=== PATIENT | male | born 1985 | race African-American/Black ===

== ENCOUNTER 2017-02-14 08:12 | Emergency (ER) | payer OTHER ==
[~2017-02-14] VITALS: Ht 190.5 cm; Wt 90.5 kg
[2017-02-14 08:16] VITALS: TEMP 36.7; Ht 190.5 cm; Wt 90.5 kg
[2017-02-14] MEDS ORDERED: SODIUM CHLORIDE 0.9% 1000ML 1,000 ML IV STA (08:47)
[2017-02-14] MEDS ORDERED: OPTIRAY 320 IV PRN (09:00)
[2017-02-14] MEDS ORDERED: ALBU18002 PO (09:03)
[2017-02-14 09:05] LABS: BASO % 0.4 %; BASO ABS # 0.04 K/uL (0-0.2); COMPLETE YES; EOS % 2.7 %; HEMATOCRIT 45.4 % (42-52); IG% 0.2 %; LYMPH % 44.9 %; LYMPH ABS # 4.11 K/uL (1.2-3.4); MEAN CELL VOLUME 84.4 fL (80-100); MEAN CORPUSCULAR HEMOGLOBIN 27.1 pg (25-34); MEAN CORPUSCULAR HGB CONC 32.2 g/dl (32-36); MEAN PLATELET VOLUME 10.5 fL (7.4-10.4); NEUT % 32.8 %; PLATELET COUNT 311 K/uL (130-400); RED BLOOD COUNT 5.38 M/uL (4.7-6.1); WHITE BLOOD COUNT 9.15 K/uL (4.8-10.8)
[2017-02-14 09:13] LABS: ALT/SGPT 36 U/L (12-78); BLOOD UREA NITROGEN 18 mg/dl (7-18); BUN/CREATININE RATIO 13.6 (10-20); C-REACTIVE PROTEIN < 0.29 mg/dl (0-0.29); CARBON DIOXIDE 29 mmol/L (21-32); CHLORIDE 106 mmol/L (98-107); GLUCOSE 85 mg/dl (70-99); POTASSIUM 3.2 mmol/L (3.5-5.1); SODIUM 141 mmol/L (136-145)
[2017-02-14 09:15] LABS: CALCIUM 8.9 mg/dl (8.5-10.1)
[2017-02-14 09:16] LABS: ALKALINE PHOSPHATASE 77 U/L (45-117); AST/SGOT 23 U/L (15-37)
--- NOTE | 2017-02-14 11:50 | DIAGNOSTIC IMAGING REPORT ---
CT ABD/PELVIS IV AND ORAL CONT CLINICAL HISTORY: Lower abdominal pain. History of colitis. COMPARISON STUDY: 01/26/2016 TECHNIQUE: Following the IV administration of 92 mL of Optiray-320, CT scan of the abdomen and pelvis was performed from the lung bases to the proximal femurs. Images are reviewed in the axial, sagittal, and coronal planes. IV contrast was administered without complication. CT DOSE: 352.44 mGy.cm FINDINGS: Lower chest: The heart is normal in size and configuration, without pericardial effusion. The lung bases and pleural spaces are clear. Liver: The contrast-enhanced liver is normal in size, contour, and attenuation. There is no intrahepatic biliary ductal dilatation. The hepatic veins and portal veins are patent. Gallbladder: Unremarkable. Spleen: Normal in size and attenuation. Pancreas: Unremarkable. Adrenal glands: Unremarkable. Kidneys: There is symmetric renal cortical enhancement. The kidneys are normal in size without hydronephrosis. Bowel: There are no transition zones indicate bowel obstruction. The appendix appears normal. No abnormalities the terminal ileum are visualized. There is mild left-sided colonic wall thickening, consistent with colitis (infectious versus inflammatory bowel disease). There are no fluid collections to indicate a peridiverticular abscess. Peritoneum: There is no intraperitoneal free air or abdominal ascites. Vasculature: The abdominal aorta is normal in course and caliber. Adenopathy: None. Pelvic viscera: The bladder, and pelvic viscera are unremarkable. Skeletal structures: No destructive osseous lesions are seen. IMPRESSION: 1. No evidence of bowel obstruction. No evidence of free air 2. Normal appendix 3. Left-sided colonic wall thickening, consistent with a colitis (inflammatory bowel disease versus infectious colitis) Electronically signed by: Prince Nuñez M.D. 02/14/2017 11:48 AM Dictated Date/Time: 02/14/2017 11:43 AM
[2017-02-14] MEDS ORDERED: METHYLPREDNISOLONE 125 MG VIAL IV STA (12:15)
--- NOTE | 2017-02-14 12:15 | EMERGENCY ROOM VISIT NOTE ---
History First contact with patient: 08:30 Chief Complaint: GI ASSESSMENT Stated Complaint: FLARE-UP W/COLITIS Nursing Triage Summary: Triage note: pt reports "i have a flare up of colitis." pt reports pain started last week and increased 2 days ago. pt reports generalized abd pain and nausea, diarrhea, blood in stool. History of Present Illness The patient is a 31 year old male who presents to the Emergency Room with complaints of abdominal cramping, diarrhea, and intermittent blood in stools for the past 1.5 weeks. Patient states history of ulcerative colitis for 10 years, states he was previously treated with Humira, but lost his medical insurance and could no longer afford to be on the medication. He states his current symptoms are similar to previous flares of his colitis. His most recent flare was one year ago and required hospitalization for the patient. He does note that he has a friend with colitis and he has taken some of her prednisone, but he is unsure of the dose or how many times he has taken it. He denies fevers, chills, fatigue, chest pain, shortness of breath, syncope, nausea /vomiting, urinary symptoms. He denies any recent antibiotics. Review of Systems GENERAL: Denies fevers, chills, malaise, fatigue, unintentional weight changes. HEENT: Denies dizziness, visual problems, hearing loss, tinnitus. Denies difficulty swallowing or oral lesions. PULMONARY: Denies cough, shortness of breath, sputum production or hemoptysis. CARDIOVASCULAR: Denies chest pain, palpitations, dyspnea on exertion, orthopnea or peripheral edema. GASTROINTESTINAL: + Abdominal pain, diarrhea, blood in stool. Denies constipation, nausea, vomiting. GENITOURINARY: Denies dysuria, frequency, urgency or nocturia. NEUROLOGIC: Denies history of epilepsy, CVA, TIA or chronic headaches. MUSCULOSKELETAL: Denies history of joint tenderness/swelling. SKIN: Denies rashes or lesions. PSYCHIATRIC: Denies history of depression or mental illness. ENDOCRINE: Denies history of diabetes, thyroid disorders, abnormal hair growth or sexual dysfunction. Past Medical/Surgical History Medical Problems: (1) Allergic rhinitis (2) Asthma (3) Colitis Family History Cancer Heart disease Hypertension Social History Smoking Status: Never Smoker Alcohol Use: occasionally Drug Use: marijuana Marital Status: in relationship Housing Status: lives with family Occupation Status: employed Current/Historical Medications Scheduled Prednisone (Prednisone Tab), 0 PO DAILY Scheduled PRN Albuterol Sulfate (Proair Respiclick), 2 PUFF PO UD PRN for Shortness of Breath Allergies Coded Allergies: No Known Allergies (Unverified , 02/14/17) Physical Exam Vital Signs Date Time Temp Pulse Resp B/P Pulse Ox O2 Delivery O2 Flow Rate FiO2 02/14/17 13:04 62 18 129/82 100 02/14/17 12:23 119/76 02/14/17 11:29 78 117/65 02/14/17 09:52 84 18 119/69 02/14/17 08:16 36.7 71 18 130/84 98 Room Air Physical Exam CONSTITUTIONAL: No acute distress. Well appearing and well nourished. Alert and oriented X 4 with normal affect. HEENT: Normocephalic, atraumatic. Pupils equal, round and reactive to light, EOMI. TMs normal. Pharynx normal. Dry mucous membranes. NECK: Supple, full active range of motion without discomfort. RESPIRATORY: Clear to auscultation bilaterally with no wheezing, crackles, rhonchi or stridor. Equal expansion bilaterally. CARDIOVASCULAR: Regular rate and rhythm with no murmurs, rubs or gallops. Normal peripheral perfusion. No edema. GASTROINTESTINAL: Tender to palpation in the left upper and lower quadrants, no rebound, no guarding. Soft, nondistended. Hyperactive bowel sounds present in all quadrants. MUSCULOSKELETAL: Full range of motion of all joints without discomfort. INTEGUMENTARY: No rash or other significant dermatologic conditions noted. NEUROLOGIC: Cranial nerves II-XII grossly intact. No focal neurologic deficits noted. Medical Decision & Procedures ER Provider Diagnostic Interpretation: CT ABD/PELVIS IV AND ORAL CONT CLINICAL HISTORY: Lower abdominal pain. History of colitis. COMPARISON STUDY: 01/26/2016 TECHNIQUE: Following the IV administration of 92 mL of Optiray-320, CT scan of the abdomen and pelvis was performed from the lung bases to the proximal femurs. Images are reviewed in the axial, sagittal, and coronal planes. IV contrast was administered without complication. CT DOSE: 352.44 mGy.cm FINDINGS: Lower chest: The heart is normal in size and configuration, without pericardial effusion. The lung bases and pleural spaces are clear. Liver: The contrast-enhanced liver is normal in size, contour, and attenuation. There is no intrahepatic biliary ductal dilatation. The hepatic veins and portal veins are patent. Gallbladder: Unremarkable. Spleen: Normal in size and attenuation. Pancreas: Unremarkable. Adrenal glands: Unremarkable. Kidneys: There is symmetric renal cortical enhancement. The kidneys are normal in size without hydronephrosis. Bowel: There are no transition zones indicate bowel obstruction. The appendix appears normal. No abnormalities the terminal ileum are visualized. There is mild left-sided colonic wall thickening, consistent with colitis (infectious versus inflammatory bowel disease). There are no fluid collections to indicate a peridiverticular abscess. Peritoneum: There is no intraperitoneal free air or abdominal ascites. Vasculature: The abdominal aorta is normal in course and caliber. Adenopathy: None. Pelvic viscera: The bladder, and pelvic viscera are unremarkable. Skeletal structures: No destructive osseous lesions are seen. IMPRESSION: 1. No evidence of bowel obstruction. No evidence of free air 2. Normal appendix 3. Left-sided colonic wall thickening, consistent with a colitis (inflammatory bowel disease versus infectious colitis) Laboratory Results 02/14/17 08:25 Red Blood Count 5.38, Mean Corpuscular Volume 84.4, Mean Corpuscular Hemoglobin 27.1, Mean Corpuscular Hemoglobin Concent 32.2, Mean Platelet Volume 10.5, Neutrophils (%) (Auto) 32.8, Lymphocytes (%) (Auto) 44.9, Monocytes (%) (Auto) 19.0, Eosinophils (%) (Auto) 2.7, Basophils (%) (Auto) 0.4, Neutrophils # (Auto ) 2.99, Lymphocytes # (Auto) 4.11, Monocytes # (Auto) 1.74, Eosinophils # (Auto ) 0.25, Basophils # (Auto) 0.04 02/14/17 08:25 Test 02/14/17 08:25 White Blood Count 9.15 K/uL (4.8-10.8) Red Blood Count 5.38 M/uL (4.7-6.1) Hemoglobin 14.6 g/dL (14.0-18.0) Hematocrit 45.4 % (42-52) Mean Corpuscular Volume 84.4 fL (80-100) Mean Corpuscular Hemoglobin 27.1 pg (25-34) Mean Corpuscular Hemoglobin Concent 32.2 g/dl (32-36) Platelet Count 311 K/uL (130-400) Mean Platelet Volume 10.5 fL (7.4-10.4) Neutrophils (%) (Auto) 32.8 % Lymphocytes (%) (Auto) 44.9 % Monocytes (%) (Auto) 19.0 % Eosinophils (%) (Auto) 2.7 % Basophils (%) (Auto) 0.4 % Neutrophils # (Auto) 2.99 K/uL (1.4-6.5) Lymphocytes # (Auto) 4.11 K/uL (1.2-3.4) Monocytes # (Auto) 1.74 K/uL (0.11-0.59) Eosinophils # (Auto) 0.25 K/uL (0-0.5) Basophils # (Auto) 0.04 K/uL (0-0.2) RDW Standard Deviation 40.2 fL (36.4-46.3) RDW Coefficient of Variation 13.2 % (11.5-14.5) Immature Granulocyte % (Auto) 0.2 % Immature Granulocyte # (Auto) 0.02 K/uL (0.00-0.02) Erythrocyte Sedimentation Rate 12 mm/hr (0-14) Anion Gap 6.0 mmol/L (3-11) Est Creatinine Clear Calc Drug Dose 98.4 ml/min Estimated GFR () 84.3 Estimated GFR (Non- 72.7 BUN/Creatinine Ratio 13.6 (10-20) Calcium Level 8.9 mg/dl (8.5-10.1) Total Bilirubin 0.4 mg/dl (0.2-1) Direct Bilirubin 0.1 mg/dl (0-0.2) Aspartate Amino Transf (AST/SGOT) 23 U/L (15-37) Alanine Aminotransferase (ALT/SGPT) 36 U/L (12-78) Alkaline Phosphatase 77 U/L (45-117) C-Reactive Protein < 0.29 mg/dl (0-0.29) Total Protein 7.9 gm/dl (6.4-8.2) Albumin 3.9 gm/dl (3.4-5.0) Lipase 137 U/L (73-393) Medications Administered Medications (Trade) Dose Ordered Sig/Kari Route Start Time Stop Time Status Last Admin Dose Admin Sodium Chloride (Nss 1000ml) 1,000 ml @ 999 mls/hr Q1H1M STAT IV 02/14/17 08:47 02/14/17 09:47 DC 02/14/17 09:11 999 MLS/HR Methylprednisolone Sodium Succinate (Solu-Medrol IV) 125 mg NOW STAT IV 02/14/17 12:15 02/14/17 12:17 DC 02/14/17 12:26 125 MG Medical Decision CC: Patient presenting with complaint of abdominal cramping, diarrhea, blood in stool Interpretation of Labs: No leukocytosis, no anemia, no significant electrolyte abnormalities, normal renal function, normal inflammatory markers. Differential Diagnosis: Includes, but not limited to colitis ulcerative versus infectious, gastroenteritis, diverticulitis, intra-abdominal infection, dehydration Summary: Patient was evaluated at bedside, history of physical exam performed. He is alert and pleasant, in no distress. He has moderate tenderness of the left mid and lower quadrants to palpation. He appears mildly dehydrated. He was offered something for pain, which he declines. Orders were placed at bedside for labs, IV fluids, CT abdomen/pelvis to evaluate for flare of ulcerative colitis versus other intra-abdominal pathology. Patient discussed with Dr. Copeland, who agrees with my assessment and plan. Labs reviewed, no significant abnormalities as above. Less likely is significant flare. CT reviewed, consistent with mild ulcerative colitis changes, correlating with patient's area of tenderness. Patient treated with IV Solu-Medrol, Rx for prednisone also provided, and patient was strictly instructed to follow closely with his GI specialist for steroid taper and further management. Patient reassessed multiple times throughout ED stay, he is clinically improved and remained stable, continuous to decline any pain medication. Patient was discharged home in stable condition, ambulatory. He was given strict return precautions, he verbalized understanding. Impression Primary Impression: Ulcerative colitis, acute Departure Information Dispostion Home / Self-Care Condition GOOD Prescriptions Prednisone (Prednisone Tab) 20 Mg Tab 0 PO DAILY for 14 Days, #28 TAB 2 TABS DAILY FOR 2 DAYS, THEN 1 TAB DAILY FOR 2 DAYS, THEN 1/2 TAB DAILY FOR 2 DAYS. Prov: Vashti Burton CRNP 02/14/17 Referrals Isis Ocampo C.R.N.P. (PCP) Patient Instructions ED Colitis Ulcerative, My [facility] Additional Instructions Call your semiconductor packages tester today to make a follow-up appointment within the next 1 week. Take the prednisone daily as prescribed. You have been given a prescription for 2 weeks. This will need to be tapered down by your semiconductor packages tester or PCP. It is vital that you follow-up. Drink plenty of fluids to stay well hydrated. Tylenol as needed for pain please return to the ER for worsening symptoms, including severe abdominal pain, vomiting up blood, large amounts of bloody diarrhea, fever/chills/feeling ill, or any other concerns. Problem Qualifiers Primary Impression: Ulcerative colitis, acute Digestive disease complication type: without complication Qualified Codes: K51.90 - Ulcerative colitis, unspecified, without complications
[2017-02-14] MEDS ORDERED: PRED20TA2 PO (12:36)
[2017-02-14 13:04] VITALS: BP 129/82; PULSE 62; O2SAT 100
== END 2017-02-14 13:07 | disposition home or self-care (01) ==
LOC: C.EDB 08:13
DX: K51.90 Ulcerative colitis, unspecified, without complications (principal); J45.909 Unspecified asthma, uncomplicated; Z86.19 Personal history of other infectious and parasitic diseases; Z80.9 Family history of malignant neoplasm, unspecified; Z82.49 Family history of ischemic heart disease and other diseases of the circulatory system

== ENCOUNTER 2017-02-26 11:10 | Emergency (ER) | payer OTHER ==
[~2017-02-26] VITALS: Ht 190.5 cm; Wt 82.9 kg
[~2017-02-26 11:10] MED LIST: ALBU18002 PO; PRED20TA2 PO
[2017-02-26 11:13] VITALS: TEMP 36.7; Ht 190.5 cm; Wt 82.9 kg
[2017-02-26] MEDS ORDERED: SODIUM CHLORIDE 0.9% 1000ML 1,000 ML IV ONE (11:30)
--- NOTE | 2017-02-26 11:36 | EMERGENCY ROOM VISIT NOTE ---
History Report prepared by [place]: Priscila Dupont Under the Supervision of: Dr. Sánchez Becerra M.D. First contact with patient: 11:24 Chief Complaint: GI ASSESSMENT Stated Complaint: FLARE-UP FROM COLITIS History of Present Illness The patient is a 31 year old male who presents to the Emergency Room with complaints of persistent abdominal pain for the past several days. He currently rates his discomfort as a 7/10 in severity. The patient reports a history of colitis and states that he was evaluated in the emergency department last week for his symptoms. He states that he was discharged with Prednisone and states that he took his last tablet today. The patient states that his symptoms have not subsided. Today he associates nausea, vomiting and diarrhea with his symptoms today. The patient states that he has been experiencing hematochezia. He additionally reports a 22 lbs weight loss since the beginning of his flare up. The patient states that his nausea is worse than it had ever been. He states that he follows with Gastroenterology. The patient states that he previously took Humira, noting that he did well with the medication. He states that this he will be starting Humira again. The patient reports increase in fatigue. He additionally notes numbness in his lower legs with lying flat. Source of History: patient Onset: past several days Position: abdomen Symptom Intensity: 7/10 Timing: other (persistent) Associated Symptoms: + nausea, + vomiting, + hematochezia, + diarrhea, + fatigue, + numbness (lower legs) Review of Systems All systems have been listed, reviewed, and are negative other than those previously mentioned. Please see Additional Medical History Sheet. Past Medical & Surgical Medical Problems: (1) Allergic rhinitis (2) Asthma (3) Colitis Family History Cancer Diabetes mellitus Heart disease Hypertension Social History Smoking Status: Never Smoker Smokeless Tobacco Use: No Alcohol Use: occasionally Drug Use: none Marital Status: in relationship Housing Status: lives with family Occupation Status: employed Current/Historical Medications Scheduled Prednisone (Prednisone Tab), 0 PO DAILY Scheduled PRN Albuterol Sulfate (Proair Respiclick), 2 PUFF PO UD PRN for Shortness of Breath Promethazine Hcl (Phenergan), 25 MG PO Q6H PRN for Nausea Allergies Coded Allergies: No Known Allergies (Unverified , 02/26/17) Physical Exam Vital Signs Date Time Temp Pulse Resp B/P (MAP) Pulse Ox O2 Delivery O2 Flow Rate FiO2 02/26/17 14:16 90 18 141/91 99 02/26/17 14:10 79 16 99 02/26/17 14:02 141/91 02/26/17 13:54 106 18 121/84 100 Room Air 02/26/17 13:40 79 19 97 02/26/17 13:32 121/84 02/26/17 13:10 78 17 96 02/26/17 13:02 122/81 02/26/17 12:40 84 20 97 02/26/17 12:32 123/81 02/26/17 12:10 83 16 100 02/26/17 12:06 87 02/26/17 12:02 124/83 02/26/17 11:44 120/93 02/26/17 11:13 36.7 110 16 124/83 98 Room Air Physical Exam GENERAL: Patient awake, alert, oriented x 3. Patient follows commands. Patient does not appear toxic. Patient appears mildly dehydrated, but well nourished. SKIN: No erythema, pallor, cyanosis or rash HEENT: Normal head, pupils equal, reactive to light and accommodation. Oral cavity and posterior pharynx appear normal. Neck: Without adenopathy, no neck vein distention. LUNGS: Clear to auscultation. No wheezes, no rales, no rhonchi. HEART: No murmurs. No gallops. No rubs ABDOMEN: Vague mid abdominal pain with small periumbilical hernia. EXTREMITIES: No signs of trauma. No pedal or pretibial edema. No calf or thigh tenderness. NEUROLOGIC: Cranial nerves II-XII within normal limits. No gross motor sensory function deficits. Medical Decision & Procedures Laboratory Results 02/26/17 11:25 Red Blood Count 5.85, Mean Corpuscular Volume 83.8, Mean Corpuscular Hemoglobin 28.2, Mean Corpuscular Hemoglobin Concent 33.7, Mean Platelet Volume 10.0, Neutrophils (%) (Auto) 74.9, Lymphocytes (%) (Auto) 10.6, Monocytes (%) (Auto) 11.9, Eosinophils (%) (Auto) 1.9, Basophils (%) (Auto) 0.4, Neutrophils # (Auto ) 12.61, Lymphocytes # (Auto) 1.79, Monocytes # (Auto) 2.01, Eosinophils # (Auto ) 0.32, Basophils # (Auto) 0.07 02/26/17 11:25 Test 02/26/17 11:25 White Blood Count 16.85 K/uL (4.8-10.8) Red Blood Count 5.85 M/uL (4.7-6.1) Hemoglobin 16.5 g/dL (14.0-18.0) Hematocrit 49.0 % (42-52) Mean Corpuscular Volume 83.8 fL (80-100) Mean Corpuscular Hemoglobin 28.2 pg (25-34) Mean Corpuscular Hemoglobin Concent 33.7 g/dl (32-36) Platelet Count 410 K/uL (130-400) Mean Platelet Volume 10.0 fL (7.4-10.4) Neutrophils (%) (Auto) 74.9 % Lymphocytes (%) (Auto) 10.6 % Monocytes (%) (Auto) 11.9 % Eosinophils (%) (Auto) 1.9 % Basophils (%) (Auto) 0.4 % Neutrophils # (Auto) 12.61 K/uL (1.4-6.5) Lymphocytes # (Auto) 1.79 K/uL (1.2-3.4) Monocytes # (Auto) 2.01 K/uL (0.11-0.59) Eosinophils # (Auto) 0.32 K/uL (0-0.5) Basophils # (Auto) 0.07 K/uL (0-0.2) RDW Standard Deviation 39.6 fL (36.4-46.3) RDW Coefficient of Variation 13.1 % (11.5-14.5) Immature Granulocyte % (Auto) 0.3 % Immature Granulocyte # (Auto) 0.05 K/uL (0.00-0.02) Anion Gap 9.0 mmol/L (3-11) Est Creatinine Clear Calc Drug Dose 73.8 ml/min Estimated GFR () 60.9 Estimated GFR (Non- 52.6 BUN/Creatinine Ratio 4.7 (10-20) Calcium Level 9.2 mg/dl (8.5-10.1) Total Bilirubin 0.7 mg/dl (0.2-1) Aspartate Amino Transf (AST/SGOT) 9 U/L (15-37) Alanine Aminotransferase (ALT/SGPT) 21 U/L (12-78) Alkaline Phosphatase 102 U/L (45-117) Total Protein 8.4 gm/dl (6.4-8.2) Albumin 3.7 gm/dl (3.4-5.0) Globulin 4.7 gm/dl (2.5-4.0) Albumin/Globulin Ratio 0.8 (0.9-2) Lipase 164 U/L (73-393) Date/Time Source Procedure Growth Status 02/26/17 11:55 Stool C.difficile Toxin B Gene (PCR) - Final No C. difficile toxin B gene detected Complete Laboratory results as stated above per my review. Medications Administered Medications (Trade) Dose Ordered Sig/Kari Route Start Time Stop Time Status Last Admin Dose Admin Ondansetron HCl (Zofran Inj) 4 mg Q1HWA PRN IV 02/26/17 11:30 02/26/17 14:48 DC 02/26/17 13:27 4 MG Sodium Chloride 1,000 ml @ 1,000 mls/hr Q1H ONCE IV 02/26/17 11:30 02/26/17 12:29 DC 02/26/17 11:48 1,000 MLS/HR Oxycodone/ Acetaminophen (Percocet 5-325mg Tab) 1 tab NOW ONCE PO 02/26/17 13:30 02/26/17 13:31 DC 02/26/17 13:53 1 TAB ED Course 1124: Past medical records reviewed. The patient was evaluated in room B9. A complete history and physical examination was performed. 1130: Ordered Sodium Chloride 1000 ml @ 1000 mls/hr IV, Zofran Inj 4 mg IV. 1330: Ordered Oxycodone/Acetaminophen 1 tab PO. 1354: I reevaluated the patient and he is feeling better. I discussed the exam findings with him and I discussed the treatment plan. He verbalized complete understanding and agreement. He is ready to go home. Medical Decision Nurses notes reviewed. Medical history sheet reviewed. Differential diagnosis includes but is not limited to: ulcerative colitis, dehydration, metabolic disorder, c-diff, other bacterial stool pathogen. Multiple labs and stool specimens were obtained. C. difficile was negative. White count is elevated but patient is on prednisone. Patient was given IV fluids and Zofran and felt significantly better. Patient was able to drink fluids prior to discharge. The patient is scheduled to start Humira this week. Stool culture is pending. Medication Reconciliation: I attest that I have personally reviewed the patient' s current medication list. Blood pressure Screening: Patient was found to have normal blood pressure on screening and does not require follow up. Impression Primary Impression: Exacerbation of ulcerative colitis Additional Impressions: Hypokalemia Dehydration Scribe Attestation The scribe's documentation has been prepared under my direction and personally reviewed by me in its entirety. I confirm that the note above accurately reflects all work, treatment, procedures, and medical decision making performed by me. Departure Information Dispostion Home / Self-Care Prescriptions Promethazine Hcl (Phenergan) 25 Mg Tab 25 MG PO Q6H Y for Nausea, #10 TAB Prov: Sánchez Becerra M.D. 02/26/17 Referrals No Doctor, Assigned (PCP) Forms HOME CARE DOCUMENTATION FORM, IMPORTANT VISIT INFORMATION Patient Instructions Colitis Ulcerative, Hypokalemia Dc, My [facility] Additional Instructions One Phenergan every 6 hours as needed for nausea. Drink at least 3-or 4 quarts of liquid over the next 24 hours. Increase potassium in her diet. Follow-up with gastroenterology this week. Problem Qualifiers
[2017-02-26] MEDS: ONDANSETRON INJ 2 MG/ML 2 ML VIAL IV PRN ×2 (11:49→13:27)
[2017-02-26 11:50] LABS: BASO % 0.4 %; BASO ABS # 0.07 K/uL (0-0.2); COMPLETE YES; EOS % 1.9 %; IG% 0.3 %; LYMPH % 10.6 %; LYMPH ABS # 1.79 K/uL (1.2-3.4); MEAN CELL VOLUME 83.8 fL (80-100); MEAN CORPUSCULAR HEMOGLOBIN 28.2 pg (25-34); MEAN CORPUSCULAR HGB CONC 33.7 g/dl (32-36); MONO % 11.9 %; NEUT % 74.9 %; PLATELET COUNT 410 K/uL (130-400); RED BLOOD COUNT 5.85 M/uL (4.7-6.1); WHITE BLOOD COUNT 16.85 K/uL (4.8-10.8)
[2017-02-26 11:56] LABS: CALCIUM 9.2 mg/dl (8.5-10.1)
[2017-02-26 11:58] LABS: BUN/CREATININE RATIO 4.7 (10-20); CREATININE 1.7 mg/dl (0.60-1.40); POTASSIUM 3.2 mmol/L (3.5-5.1)
[2017-02-26 11:59] LABS: ALB/GLOB RATIO 0.8 (0.9-2)
[2017-02-26] MEDS ORDERED: OXYCODONE/ACETAMINOPHEN 5-325 TAB PO ONE (13:30)
[2017-02-26] MEDS ORDERED: PROM25TA9 PO (14:07)
[2017-02-26 14:16] VITALS: BP 141/91; PULSE 90; O2SAT 99
== END 2017-02-26 14:18 | disposition home or self-care (01) ==
LOC: C.EDB 11:12
DX: K51.90 Ulcerative colitis, unspecified, without complications (principal); E87.6 Hypokalemia; E86.0 Dehydration; J45.909 Unspecified asthma, uncomplicated; J30.9 Allergic rhinitis, unspecified; Z80.9 Family history of malignant neoplasm, unspecified; Z83.3 Family history of diabetes mellitus; Z82.49 Family history of ischemic heart disease and other diseases of the circulatory system; Z79.52 Long term (current) use of systemic steroids

== ENCOUNTER 2019-12-29 09:08 | Inpatient (IN) ==
--- OUTSIDE RECORDS SUMMARY | 2019-12-29 09:11 | External Medical Summary | Continuity of Care Document ---
:1985 Author Name Lon Mccormack, Provider Address Unavailable Unavailable , Care Team Providers Name Role Phone Casey Daniel DO Unavailable [email or web address] [email or web address], [email or web address] Unavailable Unavailable Problems Active medical history not documented Allergies and Adverse Reactions Allergy history not documented Medications Medications not documented Procedures Procedures not documented Immunizations Immunizations not documented Plan of Treatment Planned Observations Planned Goals not documented Results No Known Results Results not documented
--- OUTSIDE RECORDS SUMMARY | 2019-12-29 09:11 | External Medical Summary | Continuity of Care Document ---
:1985 Author Name Lon Mccormack, Provider Address Unavailable Unavailable , Care Team Providers Name Role Phone Casey Daniel DO Unavailable [email or web address] PCP, UNKNOWN Unavailable Unavailable Problems Active medical history not documented Allergies and Adverse Reactions Allergy history not documented Medications Medications not documented Procedures Procedures not documented Immunizations Immunizations not documented Plan of Treatment Planned Observations Planned Goals not documented Results No Known Results Results not documented
--- NOTE | 2019-12-29 09:28 | Emergency Department Note ---
History of Present Illness General Chief complaint: Abdominal Pain Stated complaint: UC FLARE-UP Time Seen by Provider: 12/29/19 09:15 Source: patient Mode of arrival: ambulatory Limitations: no limitations History of Present Illness Maximum Pain Intensity: 7 This patient has a history of ulcerative colitis and has been having blood in stool for about the last 3 weeks is gotten increasingly worse he has lower abdo edwin pain. The blood is both bright red and dark he says. He has had some lightheadedness. He has had nausea but no vomiting of blood. This feels like a previous ulcerative colitis flare. He did talk to his GI doctor and has been put on prednisone about 3 weeks ago. He had been on Humira in the past but is not current currently on this. No fever or chills. He does have a history of asthma but this is been stable he had no chest pain or shortness of breath. Denies dysuria or hematuria. No testicular pain or swelling. He has had no surgery on his abdomen. No headache. Home Medications Home Medications Medication Instructions Recorded Confirmed Type prednisone 10 mg PO DIRECTED 12/29/19 12/29/19 History Allergies Allergy/AdvReac Type Severity Reaction Status Date / Time No Known Allergies Allergy Unverified 02/26/17 11:44 Past Med/Surg History Social History Preferred Language: Maori Communication Ability: Effective Pricing Strategist Required: No Beliefs That Will Affect Care: None Current Living Situation: Family Feels Safe at Home: Yes Safety Concerns: Feels Safe At This Time Smoking Status: Former smoker Hx Alcohol Use: Yes Alcohol type: hard liquor Hx Substance Use: No Immunizations: Past medical history: Ulcerative colitis. He had been on Humira in the past but stopped due to insurance issues. He denies that he is ever had any abdominal surgery Asthma. This is been stable Social history: he has a history of smoking marijuana but quit several months ago and says his asthma is been significantly better. Review of Systems A total of 10 systems reviewed and were otherwise negative Physical Exam Vital Signs Vital Signs - 24 hr 12/29/19 09:11 12/29/19 09:34 12/29/19 11:10 Temperature 36.7 C Temperature Source Oral Pulse Rate 129 H Pulse Rate [Apical] 92 H Respiratory Rate 20 20 Blood Pressure 129/73 Blood Pressure [Right Arm] 127/81 Blood Pressure Mean 91 Blood Pressure Mean [Right Arm] 96 Pulse Oximetry 99 99 96 Oxygen Delivery Method Room Air Room Air Room Air Sepsis Recent Fever Within 48 Hours No Sepsis New/Unexplained Change in Mental Status No Sepsis Action Taken by Nursing No Action Required General: Well developed well nourished slender young male who appears in no acute distress, breathing comfortably on room air. Normal speech HEENT: Normal cephalic atraumatic. Pupils are equal round and reactive to light. Extraocular movements are intact. Oropharynx is pink with moist mucous membranes. No swelling of the mouth lips or tongue. Neck: Supple with a midline trachea. No meningeal signs or stiffness, no JVD or bruits. No Stridor. Chest: Clear to auscultation bilaterally. No wheezes or rhonchi. No increased work of breathing. Heart: Regular rate and rhythm without murmurs or gallops. Abdomen: Soft, minimally tender in the central lower abdomen, nondistended without rebound guarding or rigidity. Extremities: No cyanosis clubbing or edema. No calf tenderness or assymetry Spine/Back. Non tender to palpation. No CVA tenderness Skin: Good turgor without rashes. Neurologic exam: Cranial nerves two through 12 are intact. Motor and sensation are intact and symmetrical throughout. Course Administered Medications Potassium Chloride (K Julius / Wtr) 10 meq in 100 mls @ 100 mls/hr IV Q1H STEPHANE Stop: 12/29/19 14:59 Last Infusion: 12/29/19 13:11 Dose: 0 mls/hr Documented by: [id number] Admin: 12/29/19 11:50 Dose: 100 mls/hr Documented by: [id number] Sodium Chloride (Nss 1000ml) 1,000 mls @ 60 mls/hr IV .[id number] STEPHANE Stop: 12/30/19 04:24 Last Admin: 12/29/19 11:50 Dose: 60 mls/hr Documented by: [id number] Discontinued Medications Sodium Chloride (Nss 1000ml) 1,000 mls @ 999 mls/hr IV .Q1H1M STEPHANE Stop: 12/29/19 10:30 Last Infusion: 12/29/19 10:51 Dose: 0 mls/hr Documented by: [id number] Admin: 12/29/19 09:37 Dose: 999 mls/hr Documented by: [id number] Sodium Chloride (Nss 1000ml) 1,000 mls @ 999 mls/hr IV .Q1H1M ONE Stop: 12/29/19 10:59 Last Infusion: 12/29/19 11:08 Dose: 0 mls/hr Documented by: [id number] Admin: 12/29/19 10:07 Dose: 999 mls/hr Documented by: [id number] Piperacillin Sod/Tazobactam Sod (Zosyn) 4.5 gm in 120 mls @ 240 mls/hr IV NOW ONE Stop: 12/29/19 11:14 Last Infusion: 12/29/19 11:26 Dose: 0 mls/hr Documented by: [id number] Admin: 12/29/19 10:56 Dose: 240 mls/hr Documented by: [id number] Ioversol (Optiray 320 100ml) 92 ml IV ONCE PRN PRN Reason: Interaction Checking Stop: 01/02/20 10:18 Last Admin: 12/29/19 10:19 Dose: 92 ml Documented by: [id number] Methylprednisolone (Solumedrol) 40 mg IV NOW STA Stop: 12/29/19 10:46 Last Admin: 12/29/19 10:56 Dose: 40 mg Documented by: [id number] Morphine Sulfate (Morphine Sulfate) 4 mg IV NOW STA Stop: 12/29/19 09:58 Last Admin: 12/29/19 10:07 Dose: 4 mg Documented by: [id number] Ondansetron HCl (Zofran) 4 mg IV NOW STA Stop: 12/29/19 09:58 Last Admin: 12/29/19 10:06 Dose: 4 mg Documented by: [id number] Impression & Plan Abdominal pain, Exacerbation of ulcerative colitis, Elevated WBC count, Acute GI bleeding Discharge Plan Visit Data *Final* Discharge Date/Time: 12/29/19 12:13 Chief Complaint: Abdominal Pain Stated Complaint: UC FLARE-UP ED Provider: Rick Page Discharge Problem: Abdominal pain, Exacerbation of ulcerative colitis, Elevated WBC count, Acute GI bleeding Patient Disposition: Admitted As Inpatient Discharge Instructions Interventions: ED Discharge Assessment Last Done: 12/29/19 12:13 Medical Decision Making Differential Diagnosis Differential diagnosis includes but is not limited to: Ulcerative colitis flare, GI bleed, anemia, infection, bowel obstruction, appendicitis, electrolyte or metabolic abnormality, diverticulitis Medical Records Attestation: I reviewed the patient's medical records. Home Medications Current Medication List: was personally reviewed by me Laboratory Data Attestation: I reviewed the patient's lab results. Result diagrams: 12/29/19 09:30 12/29/19 09:30 Lab Results 12/29/19 12/29/19 12/29/19 Range/Units 09:30 09:30 09:30 WBC 21.95 H (4.8-10.8) K/uL RBC 5.43 (4.7-6.1) M/uL Hgb 15.7 (14.0-18.0) g/dL Hct 46.7 (42-52) % MCV 86.0 (80-100) fL MCH 28.9 (25-34) pg MCHC 33.6 (32-36) g/dL RDW Std Deviation 46.0 (36.4-46.3) fL RDW Coeff of [place]elita 14.8 H (11.5-14.5) % Plt Count 450 H (130-400) K/uL MPV 9.1 (7.4-10.4) fL Immature Gran % (Auto) 1.7 % Neut % (Auto) 66.2 % Lymph % (Auto) 15.0 % [place] % (Auto) 16.4 % Eos % (Auto) 0.5 % Baso % (Auto) 0.2 % Immature Gran # (Auto) 0.37 H (0.00-0.02) K/uL Neut # (Auto) 14.52 H (1.4-6.5) K/uL Lymph # (Auto) 3.29 (1.2-3.4) K/uL [place] # (Auto) 3.60 H (0.11-0.59) K/uL Eos # (Auto) 0.12 (0-0.5) K/uL Baso # (Auto) 0.05 (0-0.2) K/uL Sodium 134 L (136-145) mmol/L Potassium 3.0 L (3.5-5.1) mmol/L Chloride 96 L (98-107) mmol/L Carbon Dioxide 32 (21-32) mmol/L Anion Gap 6.0 (3-11) BUN 16 (7-18) mg/dl Creatinine 1.65 H (0.6-1.4) mg/dl Est Cr Clr Drug Dosing 75.4 ml/min Est GFR ( Amer) 61.8 Est GFR (Non-Af Amer) 53.4 BUN/Creatinine Ratio 9.6 L (10-20) Glucose 105 H (70-99) mg/dl Calcium 9.4 (8.5-10.1) mg/dl Magnesium 2.6 H (1.8-2.4) mg/dl Total Bilirubin 0.5 (0.2-1) mg/dl AST 8 L (15-37) U/L ALT 18 (12-78) U/L Alkaline Phosphatase 81 (45-117) U/L Total Protein 8.5 H (6.4-8.2) gm/dl Albumin 3.3 L (3.4-5.0) gm/dl Globulin 5.2 H (2.5-4.0) gm/dl Albumin/Globulin Ratio 0.6 L (0.9-2) Lipase 75 (73-393) U/L Imaging Data Radiologist's Impression: Abdominal and pelvis CAT scan with IV contrast: Please refer to radiology report for details Blood Pressure Blood Pressure Findings: Normal blood pressure Blood Pressure Disposition: did not require urgent referral MDM Narrative This patient comes in as described above. He does have history of ulcerative colitis that is been flaring up for about 3 weeks with some blood in his stool. He is initially tachycardic but normotensive. IV access was established and he was hydrated with 1 L IV normal saline. Multiple blood testing was obtained his abdomen is minimally tender. I have reviewed his old records. He was found to have an elevated white count of almost 22,000. Some of this may be related his prednisone however I am concerned about infection/inflammation as well. his hemoglobin normal at 15.7. He does have a mildly low potassium and sodium as well as mildly elevated creatinine 1.65. The patient's heart rate with hydration came down into the low 100s and he looks well. For pain, he was given morphine 4 mg IV and Zofran 4 mg IV for nausea management, he does tell me that he can get somebody to drive him home I told him that he is not allowed to drive after taking this. When I rechecked him his heart rate has improved with the fluids and pain medicine where he went from 120s to low 100s. His build blood pressure remained stable. This patient with his high white count, I did order a CAT scan of the abdomen with IV contrast. There is findings consistent with a ulcerative colitis. There is an equivocal abscess but no other acute findings. I did discuss the case with Dr. Johnston who is on for GI. He recommends checking the patient for C. difficile which I ordered as well as Solu-Medrol 40 mg IV a day and cover him with antibiotics. I ordered Zosyn 4.5 g IV. [facility] for further treatment and evaluation. Cardiac monitoring: Due to the patient's pain, GI bleed and tachycardia in triage she was placed on a playground monitor. initially he was noted to be in a sinus tachycardia with a rate in the 120s. Discharge Problem: Abdominal pain Qualifiers: Abdominal location: lower abdomen, unspecified Qualified Code(s): R10.30 - Lower abdominal pain, unspecified Exacerbation of ulcerative colitis Qualifiers: Digestive disease complication type: unspecified complication Qualified Code(s): K51.919 - Ulcerative colitis, unspecified with unspecified complications Elevated WBC count Qualifiers: Leukocytosis type: unspecified Qualified Code(s): D72.829 - Elevated white blood cell count, unspecified
[2019-12-29] MEDS ORDERED: SODIUM CHLORIDE 0.9% 1000ML 1,000 ML IV SCH ×2 (09:30→11:45)
[2019-12-29 09:39] LABS: Hematocrit (blood only) 46.7 % (42-52); Hemoglobin 15.7 g/dL (14.0-18.0); Mean Corpuscular Hemoglobin 28.9 pg (25-34); Mean Corpuscular Hgb Conc 33.6 g/dL (32-36); Mean Platelet Volume 9.1 fL (7.4-10.4); Platelet Count 450 K/uL (130-400); RDW Coefficient of Variation 14.8 % (11.5-14.5); Red Blood Count 5.43 M/uL (4.7-6.1); White Blood Count 21.95 K/uL (4.8-10.8)
[2019-12-29 09:56] LABS: Albumin Level 3.3 gm/dl (3.4-5.0); BUN Creatinine Ratio 9.6 (10-20); Calcium 9.4 mg/dl (8.5-10.1); Creatinine Clr Calc Pharmacy 75.4 ml/min; Est GFR (African American) 61.8; Est GFR (Non-African American) 53.4
[2019-12-29] MEDS ORDERED: MoRPHine SULFATE 4 MG/ML 1 ML CARP\\VIAL IV STA (09:57)
[2019-12-29] MEDS ORDERED: ONDANSETRON INJ 2 MG/ML 2 ML VIAL IV STA (09:57)
[2019-12-29 09:59] LABS: Albumin Globulin Ratio 0.6 (0.9-2); Bilirubin,Total 0.5 mg/dl (0.2-1); Globulin 5.2 gm/dl (2.5-4.0); Total Protein 8.5 gm/dl (6.4-8.2)
[2019-12-29] MEDS ORDERED: SODIUM CHLORIDE 0.9% 1000ML 1,000 ML IV ONE (09:59)
[2019-12-29 10:03] LABS: Basophils # (auto) 0.05 K/uL (0-0.2); Basophils % (auto) 0.2 %; Eosinophils # (auto) 0.12 K/uL (0-0.5); Eosinophils % (auto) 0.5 %; Immature Granulocytes # (auto) 0.37 K/uL (0.00-0.02); Immature Granulocytes % (auto) 1.7 %; Lymphocytes # (auto) 3.29 K/uL (1.2-3.4); Monocytes % (auto) 16.4 %; Neutrophils # (auto) 14.52 K/uL (1.4-6.5); Neutrophils % (auto) 66.2 %
[2019-12-29] MEDS ORDERED: IOVERSOL 100ml IV PRN (10:19)
--- NOTE | 2019-12-29 10:38 | CT Scan Report ---
CT abd pelvis IV con only CLINICAL HISTORY: lower abd pain, history of ulcerative colitis. Elevated wbc COMPARISON STUDY: 02/14/2017 TECHNIQUE: The patient was scanned in a dynamic helical fashion during intravenous administration of 92 cc of Optiray 320 A dose lowering technique was utilized adhering to the principles of ALARA. CT DOSE: 349.05 mGy.cm FINDINGS: Lower chest: The heart is normal in size and configuration, without pericardial effusion. The lung ba ses and pleural spaces are clear. Liver: The contrast-enhanced liver is normal in size, contour, and attenuation. There is no intrahepa tic biliary ductal dilatation. The hepatic veins and portal veins are patent. Gallbladder: Unremarkable. Spleen: Normal in size and attenuation. Pancreas: Unremarkable. Adrenal glands: Unremarkable. Kidneys: There is symmetric renal cortical enhancement. The kidneys are normal in size without hydron ephrosis. Bowel: There are no transition zones indicate bowel obstruction. The appendix appears normal. There i s colonic wall thickening extending from the rectum to the proximal transverse colon. The findings ar e consistent with the clinical history of ulcerative colitis. Bowel evaluation is difficult due to th e lack of orally administered contrast. There is 2.5 cm abscess at the rectosigmoid junction. Peritoneum: There is no intraperitoneal free air or abdominal ascites. Vasculature: The abdominal aorta is normal in course and caliber. Adenopathy: None. Pelvic viscera: The bladder, and pelvic viscera are unremarkable. Skeletal structures: No destructive osseous lesions are seen. IMPRESSION: 1. Examination limited due to the lack of orally administered contrast 2. No evidence of bowel obstruction. No evidence of free air 3. Extensive colonic wall thickening extending from the rectum to the proximal transverse colon. The findings are consistent with the clinical history of ulcerative colitis. 4. No evidence of toxic megacolon 5. Equivocal small abscess at the rectosigmoid junction. 6. Normal appendix ACT 112: Negative or not required by law. Electronically signed by: Prince Nuñez M.D. 12/29/2019 10:36 AM
[2019-12-29] MEDS ORDERED: PIPERACILLIN/TAZOBACTAM 4.5 GM/120 ML BAG IV ONE (10:45)
[2019-12-29] MEDS ORDERED: PIPERACILL/TAZOBAC CONSULT ACTIVE PRN ×2 (10:45→11:44)
[2019-12-29] MEDS ORDERED: ACETAMINOPHEN 325 MG TAB PO PRN (11:46)
[2019-12-29] MEDS: POTASSIUM CHLORIDE / WTR 10 MEQ/100 ML PLCT IV SCH ×3 (11:50→14:41)
--- NOTE | 2019-12-29 12:08 | History & Physical Report ---
Date of Service December 29, 2019 Assessment & Plan (1) Exacerbation of ulcerative colitis: Abdominal Pain secondary to exacerbation of ulcerative colitis -34 year old Male with known diagnosis of Ulcerative colitis with Family History of brother with Crohn's disease. Patient has been diagnosed with Ulcerative Colitis for 8 years and in the past he was recommended to take Humira but as per ED physician, the patient could not afford Humira. Patient reports having small amounts of light to dark color blood in bowel movements in the stool for weeks. His admission hemoglobin is not low as it is 15.7. Patient called [facility] GI clinic on 12/23/2019 and was recommended to be on prednisone 40 mg daily for 1 week and then prednisone taper. However, patient could not take the prednisone at home regularly because of nausea and felt that he could not keep the medication down -CT abdomen 12/29/2019:"Extensive colonic wall thickening extending from the rectum to the proximal transverse colon. The findings are consistent with the clinical history of ulcerative colitis" -initial case was discussed between ED provider and Dr. Milton gastroenterology who recommended solumedrol 40 mg IV daily which was initiated in the ER on 12/29/2019 and recommended bowel rest -keep NPO but allow for sips/chips/medications -when seen by hospitalist patient reports lower abdominal pain improved after receiving morphine in the ED. will have trial of prn acetaminophen for pain or fever, oxycodone prn for moderate pain, and dilaudid prn for severe pain -trend CBC, maintain active Type and Screen. Patient never had blood transfusions in the past Possible Abscess of Gastrointestinal Tract Leukocytosis -CT abdomen 12/29/2019: "Equivocal small abscess at the rectosigmoid junction." Patient denies fevers at home. He has admission WBC of 21,000 which could be steroid induced or stress response to inflammation and dehydration. another possibility is from infection of the GI tract -await full gastrointestinal service evaluation, initial case was discussed between ED provider and Dr. Milton gastroenterology, [facility] gastroenterology consult requested -ED provider empirically started on Zosyn in the ED while awaiting for patient to make stool for C.difficile stool test -blood cultures to be performed and to follow the results -continue Zosyn for now Dehydration Acute Kidney Injury from Dehydration, Chronic Kidney Disease Stage II -initially patient was tachycardic to 120s on presentation to the ED, and admission creatinine 1.65 compared to 2/12/19 outpatient creatinine of 1.3 and 1.2 in 05/07/2018 -after 2 liters of normal saline, patient's heart rate normalized -will give additional maintenance IV fluid as normal saline 60 cc/hr for now -trend renal function Hypokalemia -admission serum potassium of 3 -give IV potassium supplements and trend serum potassium levels History of Marijuana Use -patient reports he has stopped Marijuana use in recent weeks. denies tobacco use History of asthma -has albuterol at home but reports asthma is well controlled Full Code DVT prophylaxis: SCDs, ambulation as tolerated My colleague Dr. Bailey will be the hospitalist for the patient starting on 12/30/2019 History of Present Illness 34 year old Male with known diagnosis of Ulcerative colitis with Family History of brother with Crohn's disease. Patient has been diagnosed with Ulcerative Colitis for 8 years and in the past he was recommended to take Humira but as per ED physician, the patient could not afford Humira. Patient reports having small amounts of light to dark color blood in bowel movements in the stool for weeks. His admission hemoglobin is not low as it is 15.7. Patient called [facility] GI clinic on 12/23/2019 and was recommended to be on prednisone 40 mg daily for 1 week and then prednisone taper. However, patient could not take the prednisone at home regularly because of nausea and felt that he could not keep the medication down patient reports he has stopped Marijuana use in recent weeks. denies tobacco use initially patient was tachycardic to 120s on presentation to the ED, and admission creatinine 1.65 compared to 10/30/18 outpatient creatinine of 1.3 and 1.2 in 05/07/2018 after 2 liters of normal saline, patient's heart rate normalized CT abdomen 12/29/2019:"Extensive colonic wall thickening extending from the rectum to the proximal transverse colon. The findings are consistent with the clinical history of ulcerative colitis" initial case was discussed between ED provider and Dr. Johnston of gastroenterology who recommended solumedrol 40 mg IV daily which was initiated in the ER on 12/29/2019 and recommended bowel rest Patient denies fevers at home. CT abdomen 12/29/2019: "Equivocal small abscess at the rectosigmoid junction." Patient denies fevers at home. He has admission WBC of 21,000 which could be steroid induced or stress response to inflammation and dehydration. another possibility is from infection of the GI tract ED provider empirically started on Zosyn in the ED while awaiting C.difficile stool test when seen by hospitalist patient reports lower abdominal pain improved after receiving morphine in the ED Family History of brother with Crohn's disease Allergies: Patient denies any known drug or food allergies Primary Care Provider: Isis Ocampo Allergies Allergy/AdvReac Type Severity Reaction Status Date / Time No Known Allergies Allergy Unverified 02/26/17 11:44 Home Medications Home Medications Medication Instructions Recorded Confirmed Type prednisone 10 mg PO DIRECTED 12/29/19 12/29/19 History Past Med/Surg History Social History Feels Safe at Home: Yes Smoking Status: Never smoker Review of Systems Review of Systems: All systems reviewed & are unremarkable except as noted in HPI & below Physical Exam Constitutional: WD/WN, vitals as above Eyes: PERRL, conjunctivae normal, anicteric sclerae EOM intact bilaterally ENMT: external ear and nose normal, oropharynx normal Neck: trachea midline, no thyromegaly Respiratory: normal respiratory effort, lungs clear to auscultation Cardiovascular: RRR, no murmur, no edema Gastrointestinal (Abdomen): Percussion/Palpation: abdomen soft Musculoskeletal: Head/Neck/Chest: normocephalic and head atraumatic mildly distended lower abdomen. positive bowel sounds Neurologic: PERRL, EOMI, accommodation nl, no face palsy, no dysarthria CN's II-XI intact bilaterally Psychiatric: A+Ox3, euthymic affect Results & Data Results & Data ([facility]) Vital Signs (Past 12 Hours) Vital Signs Temp Pulse Pulse Resp BP BP Pulse Ox 12/29/19 11:10 92 H 20 127/81 96 12/29/19 09:34 99 12/29/19 09:11 36.7 C 129 H 20 129/73 99 Code Status & VTE Plan VTE Prophylaxis Plan VTE Prophylaxis will be ordered: Yes (1) Exacerbation of ulcerative colitis Digestive disease complication type: unspecified complication Qualified Code(s): K51.919 - Ulcerative colitis, unspecified with unspecified complications
[2019-12-29] MEDS ORDERED: ALBUTEROL 0.5% NEB SOLN 2.5 MG/0.5 ML VIAL NEB PRN (12:22)
[2019-12-29 12:40] LABS: Appearance Urine Clear (Clear); Bilirubin Urine Negative (Negative); Blood Urine Negative (Negative); Color Urine Yellow; Glucose Urine UA Negative (Negative); Ketones Urine Trace (Negative); Leukocyte Esterase Urine Negative (Negative); Nitrite Urine Negative (Negative); Protein Urine Negative (Negative); Specific Gravity Urine > 1.045 (1.000-1.030); Urobilinogen Urine Negative (Negative)
[2019-12-29] MEDS: PIPERACILLIN/TAZOBACTAM 3.375 GM in DEXTROSE 5% 100 ML IV SCH (15:57)
[2019-12-29 17:05] LABS: Hematocrit (blood only) 37.8 % (42-52); Hemoglobin 12.5 g/dL (14.0-18.0); Mean Corpuscular Hemoglobin 28.2 pg (25-34); Mean Corpuscular Hgb Conc 33.1 g/dL (32-36); Mean Corpuscular Volume 85.1 fL (80-100); Mean Platelet Volume 9.1 fL (7.4-10.4); Platelet Count 350 K/uL (130-400); RDW Coefficient of Variation 14.7 % (11.5-14.5); RDW Standard Deviation 45.5 fL (36.4-46.3); Red Blood Count 4.44 M/uL (4.7-6.1); White Blood Count 13.87 K/uL (4.8-10.8)
[2019-12-29 17:32] LABS: Albumin Globulin Ratio 0.6 (0.9-2); Albumin Level 2.6 gm/dl (3.4-5.0); BUN Creatinine Ratio 12.4 (10-20); Bilirubin,Total 0.5 mg/dl (0.2-1); Calcium 8.4 mg/dl (8.5-10.1); Creatinine Clr Calc Pharmacy 99.5 ml/min; Est GFR (African American) 86.5; Est GFR (Non-African American) 74.7; Globulin 4.3 gm/dl (2.5-4.0); Total Protein 6.9 gm/dl (6.4-8.2)
[2019-12-29] MEDS: ONDANSETRON INJ 2 MG/ML 2 ML VIAL IV PRN (18:23)
[2019-12-29] MEDS: HYDROmorphone INJ 0.5 MG/0.5 ML SYR IV PRN (22:21)
[2019-12-30] MEDS: PIPERACILLIN/TAZOBACTAM 3.375 GM in DEXTROSE 5% 100 ML IV SCH ×4 (00:35→23:12)
[2019-12-30] MEDS: OXYCODONE HCL IR 5 MG TAB (IMMEDIATE RELEASE) PO PRN ×3 (00:39→21:27)
[2019-12-30 05:45] LABS: Basophils # (auto) 0.03 K/uL (0-0.2); Basophils % (auto) 0.2 %; Eosinophils # (auto) 0.08 K/uL (0-0.5); Eosinophils % (auto) 0.5 %; Hematocrit (blood only) 41.9 % (42-52); Hemoglobin 13.8 g/dL (14.0-18.0); Immature Granulocytes # (auto) 0.12 K/uL (0.00-0.02); Immature Granulocytes % (auto) 0.8 %; Lymphocytes # (auto) 2.23 K/uL (1.2-3.4); Lymphocytes % (auto) 15.2 %; Mean Corpuscular Hemoglobin 28.1 pg (25-34); Mean Corpuscular Hgb Conc 32.9 g/dL (32-36); Mean Corpuscular Volume 85.3 fL (80-100); Mean Platelet Volume 8.9 fL (7.4-10.4); Monocytes # (auto) 2.44 K/uL (0.11-0.59); Monocytes % (auto) 16.6 %; Neutrophils # (auto) 9.78 K/uL (1.4-6.5); Neutrophils % (auto) 66.7 %; Platelet Count 375 K/uL (130-400); RDW Coefficient of Variation 14.9 % (11.5-14.5); RDW Standard Deviation 45.2 fL (36.4-46.3); Red Blood Count 4.91 M/uL (4.7-6.1); White Blood Count 14.68 K/uL (4.8-10.8)
[2019-12-30 06:17] LABS: Albumin Level 2.9 gm/dl (3.4-5.0); BUN Creatinine Ratio 13.2 (10-20); Calcium 9.3 mg/dl (8.5-10.1); Creatinine Clr Calc Pharmacy 88.9 ml/min; Est GFR (African American) 75.4; Est GFR (Non-African American) 65.1
[2019-12-30 06:20] LABS: Albumin Globulin Ratio 0.6 (0.9-2); Bilirubin,Total 0.5 mg/dl (0.2-1); Globulin 4.7 gm/dl (2.5-4.0); Total Protein 7.6 gm/dl (6.4-8.2)
--- NOTE | 2019-12-30 09:04 | Gastrointestinal Consultation ---
Date of Consultation December 30, 2019 Assessment & Plan (1) Ulcerative colitis: Pt is a 34 y/o male w hx of UC, currently presenting w N/V, diarrhea, rectal bleeding weight loss. Likely having a flare. CT abd/pelvis showed rectosigmoid abscess 2.5cm, diffuse colon thickening . Cdiff negative.He had been on Humira up till 1 yr ago when he lost insurance coverage. He had mentioned also disliking Humira side effects - made him feel "run down" and generally unwell. Suspect some component of non compliance w med. Hx of marijuana use but denies use for weeks. - Check stool cx. - Continue Zosyn IV; on DC home may convert to PO Cipro/Flagyl - Methylprednisolone 20mg IV q8hrs - Will discuss with DARVIN Mayorga who usually manages pt about possible switching him to different biologics and timing for repeat outpt colonoscopy for disease staging - CL diet for now Supervising Physician Co-Signing Physician Notes I performed a history and physical examination of the patient today, including specifically on physical exam - soft abdomen. I have discussed the patient's management with the advanced practitioner. Please refer to the nurse practitioner's note for the documented findings and plan of care. UC flare related to nonadherance to therapy. Improving with current Tx. Small perirectal abscess noted on CT scan. Recommend 14 days course of ABx as OP. Prednisone for short period till he is started back on biologicals as OP. Repeat CT scan in 4 weeks to check resolution of the abscess. Recall GI if needed. History of Present Illness Reason for Consultation: Ulcerative colitis flare, abscess Requesting Physician: Dr. Robert Bailey Attending Physician: Dr. Mary Armenta History of Present Illness Pt is a 34 y/o male w hx of UC pancolitis who presented w symptoms of diffuse abd pain, n/v, diarrhea >5x a day, nocturnal awakening, rectal bleeding, weight loss (self reported lost 15 lbs in last 1-2 months). He previously had used Humira however hasn't been able to obtain this med due to loss of insurance. He also reports while on Humira, he feels "run down" and generally unwell. His last Humira dose was over a year ago. His last colonoscopy was in 2016 showed active chronic colitis. He is usually managed by DARVIN Mayorga in Gi clinic. He was restarted on Prednisone taper about 3 weeks ago for suspected flare symptoms however he felt no improvement on symptoms thus went to ED. Upon eval labs notable for leukocytosis, WBC 21K, Cr up to 1.6, + stool occult blood, negative Cdiff. CT abd/pelvis w IV contrast: 1. Examination limited due to the lack of orally administered contrast 2. No evidence of bowel obstruction. No evidence of free air 3. Extensive colonic wall thickening extending from the rectum to the proximal transverse colon. The findings are consistent with the clinical history of ulcerative colitis. 4. No evidence of toxic megacolon 5. Equivocal small abscess at the rectosigmoid junction. 6. Normal appendix Allergies Allergy/AdvReac Type Severity Reaction Status Date / Time No Known Allergies Allergy Unverified 02/26/17 11:44 Home Medications Home Medications Medication Instructions Recorded Confirmed Type prednisone 10 mg PO DIRECTED 12/29/19 12/29/19 History Patient History Social History Preferred Language: Icelandic Communication Ability: Effective [employer] Required: No Beliefs That Will Affect Care: None Current Living Situation: Family Feels Safe at Home: Yes Safety Concerns: Feels Safe At This Time Smoking Status: Former smoker Hx Alcohol Use: Yes Alcohol type: hard liquor Hx Substance Use: No Review of Systems Review of Systems: All systems reviewed & are unremarkable except as noted in HPI & below Physical Exam Constitutional: WD/WN, vitals as above well groomed, cooperative and comfortable Eyes: PERRL, conjunctivae normal, anicteric sclerae ENMT: external ear and nose normal, oropharynx normal Respiratory: normal respiratory effort, lungs clear to auscultation Cardiovascular: RRR, no murmur, no edema Gastrointestinal (Abdomen): Inspection/Auscultation: + hypoactive bowel sounds Percussion/Palpation: + abdomen tender (diffuse) and abdomen soft Skin: no rashes, warm and dry no jaundice Psychiatric: A+Ox3, euthymic affect Lymphatic: no lymphedema Results & Data ([facility]) Vital Signs (Past 12 Hours) Vital Signs Temp Pulse Pulse Resp BP Pulse Ox 12/30/19 07:50 92 H 12/30/19 07:17 37.2 C 112 H 16 135/73 98 12/29/19 23:00 36.4 C L 77 16 120/76 97
--- NOTE | 2019-12-30 11:31 | Hospitalist Progress Note ---
Date of Service December 30, 2019 Assessment & Plan (1) Exacerbation of ulcerative colitis: Present on admission with worsening abdominal pain associated with nausea, vomiting and diarrhea Mostly related to UC flares CT abd/pelvis showed extensive colonic wall thickening extending from the rectum to the proximal transverse colon. The findings are consistent with the clinical history of ulcerative colitis. Equivocal small abscess at the rectosigmoid junction. Failed outpatient management with prednisone taper Received IV solumedrol 40mg IV in the ER and IV Zosyn Currnetly on IV solumedrol 20mg IV q8h and IV zosyn GI on board recommended to continue on IV solumedrol and Zosyn for now, then can change to PO Cipro/Flagyl on discharge to complete 14 days course Starting on clear liquid diet Will need colonoscopy outpatient to assess for the UC stages Will need to repeat colonoscopy in 4 weeks for follow up on the small abscess Continue pain controlled Possible Abscess of Gastrointestinal Tract CT abdomen/pelvis 12/29/2019 showed equivocal small abscess at the rectosigmoid junction. Leukocytosis on admission 21K, now trending down to 14K Continue IV zosyn for now Plan to transition to PO Flagyl and Cipro on discharge to complete x 14 days Will need a repeat CT in 4 weeks for follow up on the possible abscess Blood cx pending Acute Kidney Injury from Dehydration Chronic Kidney Disease Stage II Possible related to dehydration Creatinine on admission 1.65 compared to 10/30/18 outpatient creatinine of 1.3 and 1.2 in 05/07/2018 Received IVF, creatinine improved to 1.4 Continue monitor BMP Hypokalemia K on admission 3 Received K supplement on admission K stable at 4 History of Marijuana Use patient reports he has stopped Marijuana use in recent weeks. denies tobacco use Counseling on marijuana cessation History of asthma Asymptomatic Stable CODE STATUS Full Code DVT prophylaxis: SCDs, ambulation as tolerated Admission and Anticipated Discharge Date Admission Date: December 29, 2019 Subjective Pt was seen and examined Lying in bed with no distress Pt said that his abdominal tenderness improves a little He said that his stools were dark he tolerated clear liquid diet Denies any chest pain, palpitation, dizziness and SOB Physical Exam Physical Exam: General- No acute distress Head- atraumatic Eyes- PERRL, EOMI, ENT- oropharynx clear Neck- supple, no JVD Lungs- clear to auscultation Heart- regular rhythm; no murmur Abdomen- normal bowel sounds, soft, mild tender with palpation Extremities- no calf tenderness Neuro- alert, oriented x 3; PERRL, EOMI; no facial palsy; no dysarthria Skin- warm & dry Results & Data Results & Data ([facility]) Vital Signs (Past 12 Hours) Vital Signs Temp Pulse Pulse Resp BP Pulse Ox 12/30/19 07:50 92 H 12/30/19 07:17 37.2 C 112 H 16 135/73 98 (1) Exacerbation of ulcerative colitis Digestive disease complication type: unspecified complication Qualified Code(s): K51.919 - Ulcerative colitis, unspecified with unspecified complications
[2019-12-30] MEDS ORDERED: SODIUM CHLORIDE 0.9% 1000ML 1,000 ML IV SCH (13:00)
[2019-12-30] MEDS: methylPREDNISolone 20 MG in SYRINGE 0 ML IV SCH ×2 (13:13→21:28)
[2019-12-30] MEDS: ONDANSETRON INJ 2 MG/ML 2 ML VIAL IV PRN (14:35)
[2019-12-30] MEDS: HYDROmorphone INJ 0.5 MG/0.5 ML SYR IV PRN (15:29)
[2019-12-31] MEDS: methylPREDNISolone 20 MG in SYRINGE 0 ML IV SCH ×3 (06:35→22:06)
[2019-12-31] MEDS: OXYCODONE HCL IR 5 MG TAB (IMMEDIATE RELEASE) PO PRN ×2 (08:30→22:05)
[2019-12-31] MEDS: ONDANSETRON INJ 2 MG/ML 2 ML VIAL IV PRN ×3 (08:31→22:06)
[2019-12-31] MEDS: PIPERACILLIN/TAZOBACTAM 3.375 GM in DEXTROSE 5% 100 ML IV SCH ×3 (08:31→23:19)
--- NOTE | 2019-12-31 09:47 | Gastroenterology Progress Note ---
Date of Service December 31, 2019 Assessment & Plan (1) Ulcerative colitis: Pt is a 34 y/o male w admitted for likely UC flare w CT abd/pelvis showingrectosigmoid abscess 2.5cm, diffuse colon thickening . Cdiff negative.He had been on Humira up till 1 yr ago when he lost insurance coverage. He had mentioned also disliking Humira side effects - made him feel "run down" and generally unwell. Suspect some component of non compliance w med. Hx of marijuana use but denies use for weeks. - Check stool cx. - Continue Zosyn IV; on DC home may convert to PO Cipro/Flagyl to complete 14 days course total - Methylprednisolone 20mg IV q8hrs. Upon DC, convert to Prednisone PO taper: 40mg daily x 1 week, 30mg daily x 1 week, 20mg daily x 1 week, 15mg daily x 1 week, 10mg daily x 1 week, 5mg daily x 1 week. - Will discuss with DARVIN Mayorga who usually manages pt about possible switching him to Remicade IV and timing for repeat outpt colonoscopy for disease staging - Repeat CT abd/pelvis in 2-4 week's time to check for abscess resolution - Advance diet as tolerated - Will sign off; please recall GI prn Admission and Anticipated Discharge Date Admission Date: December 29, 2019 Supervising Physician Co-Signing Physician Notes I performed a history and physical examination of the patient today, including specifically on physical exam - soft abdomen. I have discussed the patient's management with the advanced practitioner. Please refer to the nurse practitioner's note for the documented findings and plan of care. Subjective Pt reports mild +L sided abd pain. Denies n/v. BM yesterday still loose but w less blood. No BMs today He is afebrile overnight Review of Systems Review of Systems: All systems reviewed & are unremarkable except as noted in HPI & below Physical Exam Constitutional: WD/WN, vitals as above well groomed, cooperative and comfortable Eyes: PERRL, conjunctivae normal, anicteric sclerae ENMT: external ear and nose normal, oropharynx normal Respiratory: normal respiratory effort, lungs clear to auscultation Cardiovascular: RRR, no murmur, no edema Gastrointestinal (Abdomen): Inspection/Auscultation: normal bowel sounds Percussion/Palpation: + abdomen tender (L side of umbilicus) and abdomen soft Skin: no rashes, warm and dry no jaundice Psychiatric: A+Ox3, euthymic affect Lymphatic: no lymphedema Results & Data ([facility]) Vital Signs (Past 12 Hours) Vital Signs Temp Pulse Pulse Resp BP Pulse Ox 12/31/19 07:30 36.7 C 70 16 126/81 99 12/30/19 23:15 36.6 C 78 18 119/79 97
--- NOTE | 2019-12-31 12:48 | Hospitalist Progress Note ---
Date of Service December 31, 2019 Assessment & Plan (1) Exacerbation of ulcerative colitis: Present on admission with worsening abdominal pain associated with nausea, vomiting and diarrhea Mostly related to UC flares CT abd/pelvis showed extensive colonic wall thickening extending from the rectum to the proximal transverse colon. The findings are consistent with the clinical history of ulcerative colitis. Equivocal small abscess at the rectosigmoid junction. Failed outpatient management with prednisone taper Received IV solumedrol 40mg IV in the ER and IV Zosyn Currnetly on IV solumedrol 20mg IV q8h and IV zosyn GI on board recommended to continue on IV solumedrol and Zosyn for now, then can change to PO Cipro/Flagyl on discharge to complete 14 days course Tolerated clear liquid diet, will advance diet as tolerated Will transition to Prednisone PO taper: 40mg daily x 1 week, 30mg daily x 1 week, 20mg daily x 1 week, 15mg daily x 1 week, 10mg daily x 1 week, 5mg daily x 1 week on discharge Will need colonoscopy outpatient to assess for the UC stages Will need to repeat colonoscopy in 3-4 weeks for follow up on the small abscess Continue pain controlled Possible Abscess of Gastrointestinal Tract CT abdomen/pelvis 12/29/2019 showed equivocal small abscess at the rectosigmoid junction. Leukocytosis on admission 21K, now trending down to 14K Continue IV zosyn for now Plan to transition to PO Flagyl and Cipro on discharge to complete x 14 days course on discharge Will need a repeat CT in 4 weeks for follow up on the possible abscess Blood cx no growth Diarrhea Possible related to UC flares Stool for Cdiff negative Continue monitor electrolytes Acute Kidney Injury from Dehydration Chronic Kidney Disease Stage II Possible related to dehydration Creatinine on admission 1.65 compared to 10/30/18 outpatient creatinine of 1.3 and 1.2 in 05/07/2018 Received IVF, creatinine improved to 1.4 Continue monitor BMP Hypokalemia K on admission 3 Received K supplement on admission K stable at 4 History of Marijuana Use patient reports he has stopped Marijuana use in recent weeks. denies tobacco use Counseling on marijuana cessation History of asthma Asymptomatic Stable CODE STATUS Full Code DVT prophylaxis: SCDs, ambulation as tolerated Disposition Possible discharge home tomorrow Follow up with Gastro on discharge Admission and Anticipated Discharge Date Admission Date: December 29, 2019 Subjective Pt was seen and examined Lying in bed with no distress Pt said that he feels better He said that he does not have any abdominal pain He said that he had 3 episodes of diarrhea so today Denies any chest pain, palpitation, dizziness and SOB Physical Exam Physical Exam: General- No acute distress Head- atraumatic Eyes- PERRL, EOMI, ENT- oropharynx clear Neck- supple, no JVD Lungs- clear to auscultation Heart- regular rhythm; no murmur Abdomen- normal bowel sounds, soft, Nontender Extremities- no calf tenderness Neuro- alert, oriented x 3; PERRL, EOMI; no facial palsy; no dysarthria Skin- warm & dry Results & Data Results & Data ([facility]) Vital Signs (Past 12 Hours) Vital Signs Temp Pulse Resp BP Pulse Ox 12/31/19 07:30 36.7 C 70 16 126/81 99 (1) Exacerbation of ulcerative colitis Digestive disease complication type: unspecified complication Qualified Code(s): K51.919 - Ulcerative colitis, unspecified with unspecified complications
[2020-01-01] MEDS: OXYCODONE HCL IR 5 MG TAB (IMMEDIATE RELEASE) PO PRN ×2 (05:33→12:10)
[2020-01-01] MEDS: methylPREDNISolone 20 MG in SYRINGE 0 ML IV SCH (05:33)
[2020-01-01] MEDS: ONDANSETRON INJ 2 MG/ML 2 ML VIAL IV PRN ×2 (05:33→12:11)
[2020-01-01 07:40] LABS: BUN Creatinine Ratio 10.9 (10-20); Calcium 9.5 mg/dl (8.5-10.1); Creatinine Clr Calc Pharmacy 103.7 ml/min; Est GFR (African American) 90.9; Est GFR (Non-African American) 78.4; Magnesium 2.6 mg/dl (1.8-2.4); Potassium 4.1 mmol/L (3.5-5.1)
[2020-01-01] MEDS: PIPERACILLIN/TAZOBACTAM 3.375 GM in DEXTROSE 5% 100 ML IV SCH (07:52)
--- NOTE | 2020-01-01 11:14 | Hospitalist Progress Note ---
Date of Service January 01, 2020 Assessment & Plan (1) Exacerbation of ulcerative colitis: Present on admission with worsening abdominal pain associated with nausea, vomiting and diarrhea Mostly related to UC flares CT abd/pelvis showed extensive colonic wall thickening extending from the rectum to the proximal transverse colon. The findings are consistent with the clinical history of ulcerative colitis. Equivocal small abscess at the rectosigmoid junction. Failed outpatient management with prednisone taper Received IV solumedrol 40mg IV in the ER and IV Zosyn Has been on IV solumedrol 20mg IV q8h and IV zosyn GI on board recommended to change to PO Cipro/Flagyl on discharge to complete 14 days course Tolerated clear liquid diet, will advance diet as tolerated Prednisone PO taper: 40mg daily x 1 week, 30mg daily x 1 week, 20mg daily x 1 week, 15mg daily x 1 week, 10mg daily x 1 week, 5mg daily x 1 week on discharge Will need colonoscopy outpatient to assess for the UC stages-we will have follow-up appointment with GI Will need to repeat colonoscopy in 3-4 weeks for follow up on the small abscess Clinically much better today without any significant diarrhea and/or abdominal pain He has been ambulating well and ready to be discharged Possible Abscess of Gastrointestinal Tract CT abdomen/pelvis 12/29/2019 showed equivocal small abscess at the rectosigmoid junction. Leukocytosis on admission 21K, now trending down to 14K Has been on intravenous Zosyn and will change to oral Cipro and Flagyl to complete a 14 days course of antibiotic Will need a repeat CT in 4 weeks for follow up on the possible abscess Diarrhea Possible related to UC flares Stool for Cdiff negative Diarrhea is formed and improved Acute Kidney Injury from Dehydration Chronic Kidney Disease Stage II Possible related to dehydration Creatinine on admission 1.65 compared to 10/30/18 outpatient creatinine of 1.3 and 1.2 in 05/07/2018 Received intravenous fluid and the creatinine is normalized Hypokalemia K on admission 3 Received K supplement on admission K stable at 4 History of Marijuana Use patient reports he has stopped Marijuana use in recent weeks. denies tobacco use Counseling on marijuana cessation Strongly advised to quit using marijuana History of asthma Asymptomatic Stable CODE STATUS Full Code DVT prophylaxis: SCDs, ambulation as tolerated Disposition Discharged home this afternoon Follow up with Gastro on discharge and PCP Admission and Anticipated Discharge Date Admission Date: December 29, 2019 Subjective 01/01/2020 Patient was seen and examined in medical floor He has been feeling a lot better today Bowel movements have been decreased and the pain is gone Has been ambulating well in room He mentioned that he is ready to go home Review of Systems Review of Systems: All systems reviewed and are unremarkable except as noted below Gastrointestinal: no abdominal pain, no bloating, no nausea and no diarrhea/loose stools Physical Exam Physical Exam: Lying in bed comfortably Constitutional: well developed; no acute distress and not ill appearing Eyes: PERRL, conjunctivae normal, anicteric sclerae ENMT: external ear and nose normal, oropharynx normal Neck: trachea midline, no thyromegaly Respiratory: normal respiratory effort; no respiratory distress Auscultation: lungs clear to auscultation bilaterally Cardiovascular: Rate/Rhythm: regular rate and regular rhythm Heart Sounds: no murmur Gastrointestinal (Abdomen): Inspection/Auscultation: abdomen normal to in spection Percussion/Palpation: abdomen soft; abdomen nontender and no guarding Musculoskeletal: No acute arthritis in any joints Lymphatic: no cervical or axillary lymphadenopathy Results & Data Results & Data ([facility]) Vital Signs (Past 12 Hours) Vital Signs Temp Pulse Resp BP BP Pulse Ox 01/01/20 07:25 36.5 C 77 16 128/87 98 12/31/19 23:18 36.7 C 89 15 123/79 96 Laboratory Results [facility] 01/01/20 06:51 Sodium 133 L Potassium 4.1 Chloride 100 Carbon Dioxide 30 BUN 13 Creatinine 1.20 Glucose 115 H Calcium 9.5 Medications Administered Current Inpatient Medications Acetaminophen (Tylenol) 325 mg PO Q6H PRN PRN Reason: Pain or Fever Stop: 01/28/20 11:59 Albuterol (Ventolin 0.5% 2.5mg/0.5ml) 2.5 mg NEB Q6R PRN PRN Reason: Shortness Of Breath Or Wheezing Stop: 01/28/20 12:59 Hydromorphone HCl (Dilaudid) 0.5 mg IV Q6H PRN PRN Reason: Severe Pain Stop: 01/12/20 11:45 Last Admin: 12/30/19 15:29 Dose: 0.5 mg Documented by: Piperacillin Sod/Tazobactam (Sod 3.375 gm/ Dextrose) 115 mls @ 28.75 mls/hr IV Q8H [facility]; Protocol Stop: 01/08/20 15:59 Last Admin: 01/01/20 07:52 Dose: 28.8 mls/hr Documented by: Methylprednisolone 20 mg/ (Syringe) 0.32 mls @ 1.5 mls/min IV Q8 STEPHANE Stop: 01/29/20 13:59 Last Admin: 01/01/20 05:33 Dose: 1.5 mls/min Documented by: Miscellaneous Information (Consult) 1 ea N/A UD PRN PRN Reason: Consult Stop: 01/28/20 11:43 Ondansetron HCl (Zofran) 4 mg IV Q6H PRN PRN Reason: Nausea And Vomiting Stop: 01/28/20 11:59 Last Admin: 01/01/20 05:33 Dose: 4 mg Documented by: Oxycodone HCl (Roxicodone Immediate Rel) 5 mg PO Q6H PRN PRN Reason: Moderate Pain Stop: 01/12/20 11:45 Last Admin: 01/01/20 05:33 Dose: 5 mg Documented by: (1) Exacerbation of ulcerative colitis Digestive disease complication type: unspecified complication Qualified Code(s): K51.919 - Ulcerative colitis, unspecified with unspecified complications
[2020-01-01] MEDS ORDERED: CIPROFLOXACIN 500 MG TAB PO STA (13:00)
[2020-01-01] MEDS ORDERED: metroNIDAZOLE 500 MG TAB PO STA (13:00)
--- NOTE | 2020-01-01 17:22 | Discharge Summary ---
Date of Service January 01, 2020 Admission HPI Per Admitting Provider 34 year old Male with known diagnosis of Ulcerative colitis with Family History of brother with Crohn's disease. Patient has been diagnosed with Ulcerative Colitis for 8 years and in the past he was recommended to take Humira but as per ED physician, the patient could not afford Humira. Patient reports having small amounts of light to dark color blood in bowel movements in the stool for weeks. His admission hemoglobin is not low as it is 15.7. Patient called [facility] clinic on 12/23/2019 and was recommended to be on prednisone 40 mg daily for 1 week and then prednisone taper. However, patient could not take the prednisone at home regularly because of nausea and felt that he could not keep the medication down patient reports he has stopped Marijuana use in recent weeks. denies tobacco use initially patient was tachycardic to 120s on presentation to the ED, and admission creatinine 1.65 compared to 10/30/18 outpatient creatinine of 1.3 and 1.2 in 05/07/2018 after 2 liters of normal saline, patient's heart rate normalized CT abdomen 12/29/2019:"Extensive colonic wall thickening extending from the rectum to the proximal transverse colon. The findings are consistent with the clinical history of ulcerative colitis" initial case was discussed between ED provider and Dr. Johnston of gastroenterology who recommended solumedrol 40 mg IV daily which was initiated in the ER on 12/29/2019 and recommended bowel rest Patient denies fevers at home. CT abdomen 12/29/2019: "Equivocal small abscess at the rectosigmoid junction." Patient denies fevers at home. He has admission WBC of 21,000 which could be steroid induced or stress response to inflammation and dehydration. another possibility is from infection of the GI tract ED provider empirically started on Zosyn in the ED while awaiting C.difficile stool test when seen by hospitalist patient reports lower abdominal pain improved after receiving morphine in the ED Family History of brother with Crohn's disease Allergies: Patient denies any known drug or food allergies Primary Care Provider: Isis Ocampo Admission Exam Per Admitting Provider Constitutional: WD/WN, vitals as above Eyes: PERRL, conjunctivae normal, anicteric sclerae EOM intact bilaterally ENMT: external ear and nose normal, oropharynx normal Neck: trachea midline, no thyromegaly Respiratory: normal respiratory effort, lungs clear to auscultation Cardiovascular: RRR, no murmur, no edema Gastrointestinal (Abdomen): Percussion/Palpation: abdomen soft Musculoskeletal: Head/Neck/Chest: normocephalic and head atraumatic mildly distended lower abdomen. positive bowel sounds Neurologic: PERRL, EOMI, accommodation nl, no face palsy, no dysarthria CN's II-XI intact bilaterally Psychiatric: A+Ox3, euthymic affect Principal Diagnosis Exacerbation of ulcerative colitis, possible abscess rectosigmoid junction, controlled asthma Discharge Exam Constitutional well developed; no acute distress and not ill appearing Eyes PERRL, conjunctivae normal, anicteric sclerae ENMT external ear and nose normal, oropharynx normal Neck trachea midline, no thyromegaly Respiratory normal respiratory effort; no respiratory distress Auscultation: lungs clear to auscultation bilaterally Cardiovascular Rate/Rhythm: regular rate and regular rhythm Heart Sounds: no murmur Gastrointestinal (Abdomen) Inspection/Auscultation: abdomen normal to inspection Percussion/Palpation: abdomen soft; abdomen nontender and no guarding Lymphatic no cervical or axillary lymphadenopathy Discharge Data Allergies Allergy/AdvReac Type Severity Reaction Status Date / Time No Known Allergies Allergy Unverified 02/26/17 11:44 Consultations 12/29/19 11:04 ED Decision to Admit Stat 12/29/19 12:22 Consult Case Management - Discharge Planning Routine 12/30/19 08:00 Consult Gastroenterology Routine 01/01/20 11:16 Consult Case Management - Discharge Planning Routine Ordered Studies 12/29/19 09:57 CT abd pelvis IV con only Stat Hospital Course (1) Exacerbation of ulcerative colitis: Present on admission with worsening abdominal pain associated with nausea, vomiting and diarrhea Mostly related to UC flares CT abd/pelvis showed extensive colonic wall thickening extending from the rectum to the proximal transverse colon. The findings are consistent with the clinical history of ulcerative colitis. Equivocal small abscess at the rectosigmoid junction. Failed outpatient management with prednisone taper Received IV solumedrol 40mg IV in the ER and IV Zosyn Has been on IV solumedrol 20mg IV q8h and IV zosyn GI on board recommended to change to PO Cipro/Flagyl on discharge to complete 14 days course Tolerated clear liquid diet, will advance diet as tolerated Prednisone PO taper: 40mg daily x 1 week, 30mg daily x 1 week, 20mg daily x 1 week, 15mg daily x 1 week, 10mg daily x 1 week, 5mg daily x 1 week on discharge Will need colonoscopy outpatient to assess for the UC stages-we will have follow-up appointment with GI Will need to repeat colonoscopy in 3-4 weeks for follow up on the small abscess Clinically much better today without any significant diarrhea and/or abdominal pain He has been ambulating well and ready to be discharged Possible Abscess of Gastrointestinal Tract CT abdomen/pelvis 12/29/2019 showed equivocal small abscess at the rectosigmoid junction. Leukocytosis on admission 21K, now trending down to 14K Has been on intravenous Zosyn and will change to oral Cipro and Flagyl to complete a 14 days course of antibiotic Will need a repeat CT in 4 weeks for follow up on the possible abscess Diarrhea Possible related to UC flares Stool for Cdiff negative Diarrhea is formed and improved Acute Kidney Injury from Dehydration Chronic Kidney Disease Stage II Possible related to dehydration Creatinine on admission 1.65 compared to 10/30/18 outpatient creatinine of 1.3 and 1.2 in 05/07/2018 Received intravenous fluid and the creatinine is normalized Hypokalemia K on admission 3 Received K supplement on admission K stable at 4 History of Marijuana Use patient reports he has stopped Marijuana use in recent weeks. denies tobacco use Counseling on marijuana cessation Strongly advised to quit using marijuana History of asthma Asymptomatic Stable CODE STATUS Full Code DVT prophylaxis: SCDs, ambulation as tolerated Disposition Discharged home this afternoon Follow up with Gastro on discharge and PCP Total Time Total Time Spent Total Time Spent (In Minutes): 35 minutes Total Time Includes: Examination of the Patient, Discharge Planning, Medication Reconciliation and Communication With Other Providers Discharge Plan Discharge Items Patient Disposition: Home - Self-Care Reason For Visit: ULCERATIVE COLITIS FLARE, POSSIBLE GASTROINTESTINA Discharge Diagnosis: Exacerbation of ulcerative colitis, possible abscess rectosigmoid junction, controlled asthma Condition on Discharge: Good Activity: Resume your previous activity Non-emergency contact: Primary Care Provider Call non-emergency contact if: you have any medication questions Follow-up/Referrals: Isis Ocampo [Primary Care Provider] - 01/23/20 2:45 pm (Your primary care provider appointment is with Dr. Black on 01/06/2020 at 11:20 AM) Heriberto Black DO [Outside Practitioners] - 01/06/20 11:20 am Diet: Regular Addtl Attending Provider Instructions: Please take your medications as advised Pending Studies at Discharge: No Stand-Alone Forms: My [facility], Smoking Cessation Medications and DC Order Prescriptions: New prednisone 10 mg tablet 10 mg PO UD Qty: 84 RF: 0 ciprofloxacin HCl [Cipro] 500 mg tablet 500 mg PO BID Qty: 24 RF: 0 metronidazole [Flagyl] 500 mg tablet 500 mg PO BID 12 Days Qty: 24 RF: 0 Lactinex 1 million cell tablet,chewable 1 tab PO BID Qty: 30 RF: 0 Continued prednisone 10 mg tablet 10 mg PO DIRECTED RF: 0 Discharge Orders: Discharge Order (Routine); Ordered 01/01/20 Ordered By: Tyshawn Cabello Admission Data Admit Date/Time: 12/29/19 11:49 Attending Provider: yTshawn Cabello Admit Provider: Elliott Ramon Primary Care Provider: Isis Ocampo Other Providers: Fritz Salazar ; Mary Armenta ; Elliott Ramon ; Robert Nelson Other Interventions: Discharge Summary Assessment (RN) Last Done: 01/01/20 13:09 DC Date/Time DO NOT enter until pt leaves facility: 01/01/20 14:38
== END 2020-01-01 14:38 | disposition home or self-care (01) | DRG 386 ==
LOC: ED 09:08 → SUATTDRO 11:49 → 3E 11:49